=== PATIENT | female | born 1930 | race Caucasian/White ===

== ENCOUNTER 2016-09-08 16:29 | Emergency (ER) | payer MEDICARE, MEDICAID ==
[~2016-09-08] VITALS: Ht 157.5 cm; Wt 60.0 kg
[~2016-09-08 16:29] MED LIST: ARI5 PO; BUSP15 PO; LOVA40TA PO; SITA50TA2 PO; TRAM100T2 PO; ZLP5T PO
[2016-09-08 16:35] VITALS: BP 193/76; PULSE 69; RESP 18; O2SAT 100
--- NOTE | 2016-09-08 18:21 | DRSVH ---
PROCEDURE: CT BRAIN WITHOUT CONTRAST ([id number]) INDICATIONS: seizure vs syncope TECHNIQUE: Noncontrast 4.5 mm thick angled axial sections acquired from the foramen magnum to the vertex, with c oronal reformats. COMPARISON: [facility], CT, BRAIN W/O CONTRAST, 06/14/2011, 22:11. FINDINGS: Image quality: Excellent. CSF spaces: Basal cisterns are patent. No extra-axial fluid collections. The ventricles are symmet jazlyn in size and shape. Brain: No intracranial bleeds or masses. There is cerebral volume loss for age, with resultant vent ricular and sulcal prominence. There are moderate periventricular and deep white matter chronic smal l vessel ischemic changes. There is intracranial internal carotid artery atherosclerosis. Skull and face: Calvarium and visualized facial bones appear intact, without suspicious lesions. Sinuses: Visualized sinuses and mastoids are clear. IMPRESSION: 1. No acute intracranial findings. 2. Moderate findings likely associated with microvascular ischemic change. Dictated by: Concha Gonzales M.D. on 09/08/2016 at 18:17 Approved by: Concha Gonzales M.D. on 09/08/2016 at 18:19
[2016-09-08 18:44] VITALS: BP 180/61; PULSE 65; RESP 18; O2SAT 66
--- NOTE | 2016-09-08 18:49 | ED.REPORT ---
HPI-General Illness Date of Service Sep 08, 2016 ED Provider: Dr. 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 The pt does not remember the incident, and reports that she currently feels fine. Pt was sitting on the porch smoking with her granddaughter when she dropped her cigarette and began shaking, and her eyes rolled back lasting for about 15-20 seconds. About 2 minutes later she had a similar episode. After the episode, she had a bit of a different personality, she was angry immediately after, then became bright and cheery although she had been kind of down earlier in the day. Her daughter reports that the pt has been fatigued recently, and had a fever 4 days ago but not since then. Denies any bowel or bladder incontinence, sleep deprivation, lightheadedness, or any other symptoms at this time. Pt lives with her daughter and is ambulatory. She was able to walk into the ER today. Nursing Notes Stated Complaint: SEIZURE Chief Complaint: Seizure Nursing Notes Reviewed: Yes Allergies: Coded Allergies: Penicillins (Verified Allergy, Severe, 09/08/16) iodine (Verified Allergy, Severe, 09/08/16) quinine (Verified Allergy, Severe, 09/08/16) Contrast Media (Verified Allergy, Unknown, 09/08/16) Scheduled Buspirone-Expunged Drug, Do Not Renew! (Buspirone-Expunged Drug, Do Not Renew!) 15 Mg Tablet 5 MG PO BID Cephalexin (Cephalexin) 500 Mg Capsule 500 MG PO TID Donepezil-Expunged Drug, Do Not Renew! (Donepezil-Expunged Drug, Do Not Renew!) 5 Mg Tablet 10 MG PO DAILY Lovastatin-Expunged Drug, Do Not Renew! (Lovastatin-Expunged Drug, Do Not Renew! ) 40 Mg Tablet 40 MG PO DAILY Sitagliptin (Januvia) 50 Mg Tablet 50 MG PO DAILY Scheduled PRN Tramadol-Expunged Drug, Do Not Renew! (Tramadol-Expunged Drug, Do Not Renew!) 100 Mg Tab.sr.24h 50 MG PO Q8 PRN PRN Zolpidem-Expunged Drug, Do Not Renew! (Zolpidem-Expunged Drug, Do Not Renew!) 5 Mg Tab 5 MG PO HS PRN PRN General Time Seen by MD: 18:49 Chief Complaint Seizure Hx Obtained From: Patient, Daughter Arrived By: Walk-in Sudden in Onset?: Yes Onset Occurred: Just prior to arrival Symptom Duration: Since onset Severity: Current: No pain currently Severity: Maximum: No pain Recent Healthcare: No recent doctor visit, No recent hospitalization Similar Sx Previous: No Past Medical History Past Medical History Notes: PCP Philippe Medina at [facility] Past Medical History Hx of TIAs with residual short term memory loss Former diabetic Past Surgical History Right knee surgery, carotid endarterectomy, hysterectomy, back surgery, benign tumors of the breast removed and facial skin cancer. Smoking History Current Every Day Smoker Social History Other Social History: Good social support, Lives with children Ambulatory Status Independent Review of Systems Full Review of Systems Constitutional: Reports: Fatigue, Denies: Fever Female: Denies: Incontinence Neurologic: Reports: Seizure Complete sys rev & neg: except as marked. Physical Exam Vital Signs Vital Signs Date Time Temp Pulse Resp B/P Pulse Ox O2 Delivery O2 Flow Rate FiO2 09/08/16 21:28 70 18 176/77 97 Room Air 09/08/16 18:44 65 18 180/61 66 Room Air 09/08/16 16:35 36.4 69 18 193/76 100 Room Air Initial VS: Reviewed ENT: Mucous membranes moist, Conjunctiva normal, No scleral icterus Neck: Supple, Non-tender, Full range of motion Respiratory: Breath sounds normal, Clear to auscultation, No respiratory distress Back: No CVA tenderness Skin: Warm, Dry, No cyanosis Neurologic: Alert, Oriented, Nonfocal Psychiatric: Mood/affect normal, Behavior normal, Normal thought content Head / Eyes: Atraumatic, Normocephalic, PERRL, EOMI, No nystagmus No facial droop Cardiovascular: Heart rate NL, Regular rhythm, Heart sounds NL, No gallop, No murmurs, No rubs Upper Extremities Upper Extremity / MS: Atraumatic, Inspection NL, Full range of motion, Neurologic intact, Vascular intact No motor deficits. Lower Extremity / Pelvis / MS: Atraumatic, Inspection NL, Full range of motion , Neurologic intact, Vascular intact No motor deficits. Interpretation & Diagnostics Lab Results Interpretation Result Diagram: 09/08/16 1841 09/08/16 1841 Test 09/08/16 18:41 09/08/16 19:26 White Blood Count 5.9th/mm3 (3.8-10.1) Red Blood Count 4.67mil/mm3 (3.90-5.20) Hemoglobin 13.7g/dL (12.0-15.6) Hematocrit 41.5% (35.0-46.0) Mean Corpuscular Volume 88.9fL (81-100) Mean Corpuscular Hemoglobin 29.3pg (27.0-35.0) Mean Corpuscular Hemoglobin Concent 33.0% (32.0-37.0) Red Cell Distribution Width 14.3% (12.3-15.4) Platelet Count 185bil/L (150-400) Neutrophils (%) (Auto) 69.4% (40-74) Lymphocytes (%) (Auto) 21.2% (14-46) Monocytes (%) (Auto) 8.0% (4-12) Eosinophils (%) (Auto) 1.0% (0-5) Basophils (%) (Auto) 0.2% (0-3) Sodium Level 138mEq/L (134-144) Potassium Level 4.9mEq/L (3.5-5.2) Chloride Level 99mEq/L (97-108) Carbon Dioxide Level 25mmol/L (18-29) Blood Urea Nitrogen 28mg/dL (8-27) Creatinine 1.05mg/dL (0.57-1.00) Estimat Glomerular Filtration Rate 71mL/min (>59) Glucose Level 113mg/dL (60-99) Calcium Level 9.2mg/dL (8.5-10.1) Magnesium Level 2.4mg/dL (1.6-2.6) Total Bilirubin 0.2mg/dL (0.0-1.2) Aspartate Amino Transf (AST/SGOT) 20U/L (0-50) Alanine Aminotransferase (ALT/SGPT) 16U/L (0-32) Alkaline Phosphatase 67U/L (25-165) Troponin T < 0.010ug/L (0.0-0.011) Total Protein 7.1g/dL (6.4-8.4) Albumin 3.9g/dL (3.4-5.0) Hold Bailey Top Tube Received (Received) Urine Color Yellow (YELLOW) Urine Appearance Hazy (CLEAR,HAZY) Urine pH 7.5 (5.0-8.0) Urine Specific [place] <1.005 (1.003-1.035) Urine Protein Tracemg/dL (NEG,TRACE) Urine Glucose (UA) Negativemg/dL (NEGATIVE) Urine Ketones Negativemg/dL (NEGATIVE) Urine Occult Blood Negative (NEGATIVE) Urine Nitrite Negative (NEGATIVE) Urine Bilirubin Negative (NEGATIVE) Urine Urobilinogen Normalmg/dL (NORMAL) Urine Leukocyte Esterase Moderate (NEGATIVE) Urine RBC 0-2/hpf (0-2) Urine WBC 6-10/hpf (0-5) Urine Epithelial Cells Few/hpf (NONE-MOD) Urine Crystals None seen (NONE SEEN) Urine Bacteria Few/hpf (NONE-FEW) Urine Hyaline Casts None/lpf (NONE) Urine Granular Casts None seen (NONE SEEN) Urine Waxy Casts None seen (NONE SEEN) Urine Red Blood Cell Casts None seen (NONE SEEN) Urine White Blood Cell Casts None seen (NONE SEEN) Urine Mucus None seen (None Seen) Urine Trichomonas None seen (NONE SEEN) Urine Yeast None (NONE SEEN) Urinalysis Comment None Urine Culture Reflexed Indicated ECG Interpretation ECG Interpretation: Sinus at 62. Qs in 3 and v1 v2. Time: 18:03 Interpreted by: ED physician CT Head Interpretation IMPRESSION: 1. No acute intracranial findings. 2. Moderate findings likely associated with microvascular ischemic change. Dictated by: Concha Gonzales M.D. on 09/08/2016 at 18:17 Study: Head CT no contrast Interpretation / Wet Read by: Interpret - Radiologist Re-Eval/Medical Decision Time of Eval: 20:15 Patient Status: Condition improved Re-Evaluation/Progress Note: Discussed lab results and plan for IV fluids and antibiotics. Counseled Regarding: Diagnosis, Lab results, Need for follow-up, When/why to return to ED Discharge & Departure Primary Impression: Spell of altered consciousness Additional Impressions: Dehydration Urinary tract infection Urinary tract infection type: acute cystitis Hematuria presence: without hematuria Qualified Code: N30.00 - Acute cystitis without hematuria Disposition: Home Discharge Condition All VS Reviewed: Yes Condition: Improved Additional Instructions: Emergency department evaluation today included interview, examination, labs, ECG , CT brain and review of past records. With the information we have today it is impossible to say whether or not these spells of shaking observed were a new onset seizure. At this point Paige appears well and we note a urinary tract infection and dehydration on labs. Cephalexin 500 mg 3 times a day is started for urinary tract infection. IV fluids were given for dehydration. Continue previous home care. Follow up with primary care within 1 week. Return to emergency department if having recurrent spells similar to what was observed today, fevers or vomiting or other new worrisome symptoms. Thank you for trusting us with her care tonight Referrals: OTHER,PHYSICIAN (PCP) (Family) Scribe Attestation Portions of this note were transcribed by Anjali Diaz. I, Dr. Sadler personally performed the history, physical exam and medical decision-making; I reviewed and confirmed the accuracy of the information in the transcribed note. Signed by : Destiny Morin, 09/08/2016 at 2117. Isak Sadler MD Sep 08, 2016 18:49 ANJALI DIAZ Sep 08, 2016 19:03
[2016-09-08 18:58] LABS: BASOPHILS % (AUTO) 0.2 % (0-3); Mean Corpuscular Hemoglobin 29.3 pg (27.0-35.0); Mean Corpuscular Volume 88.9 fL (81-100); NEUTROPHILS % (AUTO) 69.4 % (40-74); Platelet Count 185 bil/L (150-400)
[2016-09-08 19:18] LABS: TROPONIN T < 0.010 ug/L (0.0-0.011)
[2016-09-08 19:27] LABS: Magnesium 2.4 mg/dL (1.6-2.6)
[2016-09-08 19:38] LABS: APPEARANCE,URINE HAZY (CLEAR,HAZY); COLOR,URINE YELLOW (YELLOW); OCCULT BLOOD,URINE NEGATIVE (NEGATIVE); PH,URINE 7.5 (5.0-8.0); UROBILINOGEN,URINE NORMAL (NORMAL)
[2016-09-08] MEDS ORDERED: 0.9% Sodium Chloride 1,000 ML IV ONE (20:20)
[2016-09-08] MEDS ORDERED: CEPH500C PO (21:16)
[2016-09-08 21:28] VITALS: BP 176/77; PULSE 70; RESP 18; O2SAT 97
== END 2016-09-08 22:20 | disposition home or self-care (01) ==
LOC: SED 16:29
DX: R40.4 Transient alteration of awareness (principal); E86.0 Dehydration; N30.00 Acute cystitis without hematuria; I69.311 Memory deficit following cerebral infarction; F17.200 Nicotine dependence, unspecified, uncomplicated; Z88.0 Allergy status to penicillin; Z88.8 Allergy status to other drugs, medicaments and biological substances; Z91.041 Radiographic dye allergy status
CPT/HCPCS: 36415; 70450; 80053; 81000; 83735; 84484; 85025; 87086; 87088; 93005; 96360; 99285; J7030